=== PATIENT | male | born 1990 ===

== ENCOUNTER → 2023-05-03 | Outpatient (CLI) | payer OTHER ==
[~2023-05-03] MED LIST: HYDACE5 PO
== END ==
LOC: LAB 12:58 → LAB SHORT 12:58
DX: L08.0 Pyoderma (principal)
CPT/HCPCS: 87070; 87205

== ENCOUNTER → 2024-04-21 | Outpatient (CLI) | payer OTHER | LOC: LAB 15:20 → LAB SHORT 15:20 | PROVIDERS: Family Medicine | DX: J06.9 Acute upper respiratory infection, unspecified (principal) | CPT/HCPCS: 87081; 87631 ==